=== PATIENT | male | born 1950 | race Caucasian/White ===

== ENCOUNTER 2017-07-02 10:53 | Inpatient (IN) | payer OTHER ==
[~2017-07-02] VITALS: Ht 175.3 cm; Wt 113.0 kg
--- NOTE | ~2017-07-02 | HP ---
Unit #: [id number] #: [id number] Patient: ROSALBA SIFUENTES [id number] [address] [address] [id number] I MR#: [id number] NAME: ROSALBA SIFUENTES. ROOM: 59506 Age: 66 Sex: M Admission Date: 07/02/2017 : 1950 Attending Physician: Payal Benjamin M.D. Primary Care Physician: Jessee Brody M.D. HISTORY AND PHYSICAL CHIEF COMPLAINT Weakness. HISTORY OF PRESENT ILLNESS The patient is a 66 year old with history of diabetes and hypertension and brought to the emergency room after visiting the aftercare earlier today for the fatigue and weakness. The patient stated the patient has been feeling sick Tuesday and is unable to eat and has noticed weakness. The patient also complains of the urinary complaints with unable to control the urinary urgency. The patient denies any blood in the urine. The patient was found to have an acute kidney injury with a creatinine of 2.2 and potassium of 2.7 and the UTI. The patient is being admitted for the above reasons. The patient denies any fever, denies any chills, denies any nausea and vomiting. PAST MEDICAL HISTORY History of hypertension and diabetes. PAST SURGICAL HISTORY A tumor removed. SOCIAL HISTORY No history of smoking cigarettes or drinking alcohol or any illicit drug abuse. FAMILY HISTORY Reviewed and none. ALLERGIES Penicillin. HOME MEDICATIONS The patient is on: 1. Norvasc. 2. Valsartan. 3. Hydrocholorothiazide. 4. Bisoprolol. 5. Clonidine. 6. Fenofibrate. 7. Metoprolol. 8. Metformin. REVIEW OF SYMPTOMS Positive for weakness. Positive for decreased oral intake. Positive for Unit #: [id number] #: [id number] Patient: ROSALBA SIFUENTES the urinary complaints. The patient denies any fever. The patient denies any chills. All other systems have been reviewed and are as described in HPI. PHYSICAL EXAMINATION GENERAL APPEARANCE: The patient was laying on the bed, not in acute distress. VITAL SIGNS: Temperature 98.7. Pulse 72. Respiratory rate 15. Blood pressure 150/85. Sating 98% on room air. HEENT: Head: Atraumatic, normocephalic. ENT: Pupils equal, round, reactive to light and accommodation. Extraocular movements are intact. Dry mucous membrane. NECK: Supple. LUNGS: Decreased air entry at the bases. HEART: Regular rate and rhythm. ABDOMEN: Soft. Positive bowel sounds. EXTREMITIES: No cyanosis. No clubbing. NEUROLOGIC: Alert, awake, oriented. No gross focal motor deficit. DIAGNOSTIC STUDIES LABORATORY: Glucose 107. WBC 21.7, hemoglobin 11.4, hematocrit 32.7, neutrophils 90.3. Sodium 132, potassium 2.7, chloride 98, bicarb 23, glucose 113, BUN 35, creatinine 2.2, calcium 8.3, AST 30, ALT 23, albumin 3.0, magnesium 1.3. UA shows 3+ leukocyte esterase, 2+ protein and 25 to 50 urine RBCs and innumerable WBCs. TSH is 2.05. IMAGING: Chest x-ray is negative. ASSESSMENT 1. UTI. 2. Probable sepsis. Check the lactic acid. 3. Hypokalemia. 4. MATHEW. PLAN To admit the patient to inpatient with telemetry. Continue with sepsis protocol and continue with IV antibiotics with Rocephin. Replace the potassium per protocol and replace the magnesium also with the protocol. We will check renal ultrasound and hold the Metformin and hydrochlorothiazide and nephrotoxic agents and further recommendations will follow. Dictated by Madhu Redmond TD: 07/02/2017 16:42 JOB #: [id number] Unit #: [id number] #: [id number] Patient: ROSALBA SIFUENTES HISTORY AND PHYSICAL Page 1 of 1 X PAYAL BENJAMIN MD HISTORY AND PHYSICAL
--- NOTE | ~2017-07-02 | CR72 ---
[facility] A Service of [facility] RADIOLOGY TEXT RESULTS PATIENT: ROSALBA SIFUENTES LOCATION: [place] [address] : [birth year] UNIT #: [id number] AGE: [address]: PAYAL BENJAMIN MD SEX: M ORDER DR: [id number] [place] [address] [place], [place] [address] [id number] I MR#: [id number] Acc #: [id number] NAME: ROSALBA SIFUENTES : 1950 SEX: M STUDY DATE/TIME: 07/02/2017 11:33 UNIT: [facility] ROOM: 4 STUDY DESCRIPTION: CR Chest Single View Portable Attending Physician: Payal Benjamin M.D. Ordering Physician: Dragan Faith M.D. Primary Care Physician: Jessee Brody M.D. MEDICAL IMAGING REPORT This report is preliminary unless electronic signature is present EXAM Chest x-ray single-view portable HISTORY Weakness, short of air with activity for 4 days history of essential hypertension. COMMENT Single frontal portable view chest timed 1133 on 07/02/2017 reviewed. COMPARISON None. FINDINGS Cardiac silhouette is top normal in size and there is evidence for old granulomatous disease. There is no acute-appearing parenchymal infiltrate or acute congestive failure. There is no pneumothorax. IMPRESSION 1. No active disease. Dictated by... Zeinab López M.D. THIS IS AN ELECTRONICALLY VERIFIED REPORT Zeinab López M.D. at 07/03/2017 3:54 PM SAC/myles TD: 07/03/2017 15:39 JOB #: [id number] MEDICAL IMAGING REPORT [facility] A Service of [facility] RADIOLOGY TEXT RESULTS PATIENT: ROSALBA SIFUENTES LOCATION: [place] [address] : [birth year] UNIT #: [id number] AGE: [address]: PAYAL BENAJMIN MD SEX: M ORDER DR: Page 1 of 1 COPY
--- NOTE | ~2017-07-02 | DS ---
Unit #: [id number] #: [id number] Patient: ROSALBA SIFUENTES [id number] [address] [address] [id number] I MR#: [id number] NAME: ROSALBA SIFUENTES. ROOM: 464 Age: 66 Sex: M Admission Date: 07/02/2017 : 1950 Discharge Date: 07/07/2017 Attending Physician: Chelo Gomez M.D. Primary Care Physician: Jessee Brody M.D. DISCHARGE SUMMARY DISCHARGE DIAGNOSES 1. Pseudomonas bacteremia with urinary tract infection. 2. Acute kidney injury. 3. Hypertension. 4. Hyponatremia. 5. Anemia. 6. Zltrh-az-jmriiyc iron deficiency. 7. Diabetes mellitus type 2. Uncontrolled. 8. Prostatitis possible. 9. Hypokalemia. 10. Hypomagnesemia. 11. Mild protein malnutrition. 12. Obesity. CONSULTANTS Dr. Beard. Dr. Her. PROCEDURES PERFORMED PICC line placement done on 07/07/2017. DIAGNOSTIC DATA LABORATORY: Glucose 124, magnesium 1.7, sodium 135, potassium 4.0, and creatinine 1.4, white blood cell count 16.9, hemoglobin 9.9, platelets 297. Blood cultures on 07/03/2017 showing pseudomonas aeruginosa. Urine cultures are showing pseudomonas aeruginosa. ALLERGIES Penicillin. DISCHARGE MEDICATIONS 1. Metformin 1000 mg p.o. b.i.d. 2. Nicotine 21 mg transdermal daily. 3. Toprol XL 200 mg p.o. daily. 4. Fenofibrate 145 mg p.o. daily. 5. Clonidine 0.3 mg p.o. b.i.d. 6. Calcium carbonate 500 mg p.o. t.i.d. over the counter. 7. Hydralazine 25 mg p.o. b.i.d. 8. Levaquin 750 mg IV daily. Stop date 07/26/2017. 9. Cefepime 2 g IV b.i.d. Stop date 07/26/2017. HOSPITAL COURSE The patient is a 66-year-old admitted because of weakness. Unit #: [id number] #: [id number] Patient: ROSALBA SIFUENTES Pseudomonas bacteremia with urinary tract infection: The patient as seen by urology and infectious disease. The patient was started on broad spectrum antibiotics. Repeat blood cultures are negative. The patient was started on Maxipime and Levaquin. The patient will have PICC line and continue the Maxipime and Levaquin. Stop date 07/26/2017. Acute kidney injury: Likely from prerenal infection. The patient received IV fluids. Currently creatinine is stable. Hypertension: Elevated. The patient was given hydralazine prescription. Diabetes mellitus type 2: Uncontrolled. The patient was given insulin. The patient will be continued with metformin. DISPOSITION The patient is discharged home. FOLLOWUP 1. Follow up with family physician in one week time. 2. Follow up with Dr. Beard in one week time. 3. The patient will have IV antibiotics. Home health to follow. 4. manager trust arranged antibiotics. Discharge time taken is 31 minutes. Dictated by... Madhu Lius/rahel TD: 07/08/2017 13:36 JOB #: [id number] CC: Jessee Brody M.D. DISCHARGE SUMMARY Page 1 of 1 X Chelo Gomez MD X DISCHARGE SUMMARY
--- NOTE | ~2017-07-02 | XA166 ---
[facility] A Service of [facility] RADIOLOGY TEXT RESULTS PATIENT: ROSALBA SIFUENTES LOCATION: [facility] 464-01 : [birth year] UNIT #: [id number] AGE: [address]: Chelo Gomez MD SEX: M ORDER DR: [id number] [place] [id number] [facility]. [place], [place] [address] [id number] I MR#: [id number] Acc #: [id number] NAME: ROSALBA SIFUENTES. : 1950 SEX: M STUDY DATE/TIME: 07/07/2017 12:20 UNIT: [facility] ROOM: [facility] STUDY DESCRIPTION: XA PICC Line Placement WO Port Attending Physician: Chelo Gomez M.D. Ordering Physician: Nicola Her M.D. Primary Care Physician: Jessee Brody M.D. MEDICAL IMAGING REPORT This report is preliminary unless electronic signature is present EXAM Right-sided PICC line placement HISTORY Need for IV access in a patient with renal insufficiency and essential hypertension as well as shortness of breath with activity for four days. PRE-PROCEDURE The procedure was explained to the patient and/or patient artist's representative including risks, benefits, potential complications and potential for alternative forms of treatment. Informed consent was obtained, and prior to initiating the procedure a formal timeout procedure was performed. PROCEDURE Using full standard sterile barrier technique, including caps, gowns, gloves, masks, as well as sterile skin preparation and standard sterile draping, the right arm was prepped and draped in the usual fashion, and real-time sterile ultrasound guidance was used to localize an arm vein and to confirm vessel patency. A hard copy ultrasound image was recorded. After local anesthesia with 1% Xylocaine, the vein was punctured using real-time sterile ultrasound guidance, and an 0.018 guidewire was advanced into the superior vena cava, using fluoroscopic guidance. A 4 Nigerian single-lumen PICC was then measured and deployed with the tip positioned in the superior vena cava. The position of the line was documented with a radiographic image. The line was secured in place with an adhesive dressing and an antibiotic patch was applied. Total fluoro time was 0.1 minutes. AK was 2 mGy. IMPRESSION Successful placement of a 4 Nigerian single-lumen PowerPICC via the right arm under ultrasound and fluoroscopic guidance. The tip of the PICC is in STS. [facility] A Service of [facility] RADIOLOGY TEXT RESULTS PATIENT: ROSALBA SIFUENTES LOCATION: [facility] 464-01 : [birth year] UNIT #: [id number] AGE: [address]: Chelo Gomez MD SEX: M ORDER DR: good position in the superior vena cava. Dictated by... Davida Delgado M.D. THIS IS AN ELECTRONICALLY VERIFIED REPORT Davida Delgado M.D. at 07/08/2017 4:56 PM MAGDA/evans TD: 07/08/2017 11:22 JOB #: [id number] MEDICAL IMAGING REPORT Page 1 of 1 COPY
--- NOTE | ~2017-07-02 | EKG ---
PATIENT: ROSALBA SIFUENTES UNIT #: [id number] Ventricular Rate: 70 BPM Atrial Rate: 70 BPM P-R Interval: 106 ms QRS Duration: 86 ms Q-T Interval: 382 ms QTC Calculation(Bezet): 412 ms P Preemption: -13 degrees Calculated R Preemption: -3 degrees Calculated T Preemption: 10 degrees Diagnosis Line: Sinus rhythm with short MO Diagnosis Line: Cannot rule out Inferior infarct , age Diagnosis Line: undetermined Diagnosis Line: Borderline ECG Diagnosis Line: No previous ECGs available Diagnosis Line: Confirmed by COLLIN VILLAGOMEZ MD ([id number]) on 07/03/2017 Diagnosis Line: 3:05:42 PM INTERPRETING MD: DAHLIA MARTINEZ
--- NOTE | ~2017-07-02 | US77 ---
[facility] A Service of [facility] & [facility] RADIOLOGY TEXT RESULTS PATIENT: ROSALBA SIFUENTES LOCATION: [facility] 464- : [birth year] UNIT #: [id number] AGE: [address]: PAYAL BENJAMIN MD SEX: M ORDER DR: [id number] [facility] [address] [facility]. [place], [place] [address] [id number] I MR#: [id number] Acc #: [id number] NAME: ROSALBA SIFUENTES : 1950 SEX: M STUDY DATE/TIME: 07/02/2017 16:47 UNIT: [facility] ROOM: 4 STUDY DESCRIPTION: US Kidney Bilateral Complete Attending Physician: Payal Benjamin M.D. Ordering Physician: Ed Baljeet Cervantes M.D. Primary Care Physician: Jessee Brody M.D. MEDICAL IMAGING REPORT This report is preliminary unless electronic signature is present EXAM Renal ultrasound INDICATION Acute renal insufficiency. Creatinine 2.2. GFR of 30.1. COMPARISON None available. FINDINGS The right kidney measures 12 cm. The left kidney measures 13 cm. There is increased echogenicity of the renal cortex. There is borderline renal cortical atrophy. No hydronephrosis. The bladder is unremarkable. IMPRESSION 1. Chronic medical renal disease and borderline renal cortical atrophy. Dictated by... Chapo Barnard M.D. THIS IS AN ELECTRONICALLY VERIFIED REPORT Chapo Barnard M.D. at 07/03/2017 7:49 PM RPC/myles TD: 07/03/2017 17:50 JOB #: [id number] MEDICAL IMAGING REPORT Page 1 of 1 COPY
--- NOTE | ~2017-07-02 | CO ---
Unit #: [id number] #: [id number] Patient: ROSALBA SIFUENTES [id number] [address] [place], [place] [address] [id number] I MR#: [id number] NAME: ROSALBA SIFUENTES ROOM: 464 Age: 66 Sex: M Admission Date: 07/02/2017 : 1950 Attending Physician: Lea Benjamin M.D. Primary Care Physician: Jessee Brody M.D. Requesting Physician: Sukhdeep Gao M.D. CONSULTATION REPORT REASON FOR CONSULTATION Sepsis. HISTORY OF PRESENT ILLNESS Mr. Sifuentes is a pleasant 66-year-old gentleman with a history of diabetes and hypertension, who was told to go to the emergency room after he was directed by his aftercare primary care physician's office due to weakness and fatigue. Per the patient, he had been doing well for the last month. He had a checkup in May with his primary care physician's office. All of his labs are normal, including his PSA. He had started going to the gym more and working out at the [employer]. This past week he had gone to [place] on a camping trip with his family. He was there for one day and then started feeling bad the next day, for which he had gone to his primary care physician's office. He complained of generalized weakness as well as some urinary complaints. He is unable to control his urinary urgency. He denies any blood in his urine. He denies any nausea, vomiting, chest pain, shortness of air, cough and dysuria. Urine cultures are currently positive with gram negative rods and blood cultures are also positive with gram negative rods. Chest x-ray shows no active disease. The patient has been started on Levaquin and Rocephin. We have been asked do see the patient for antibiotic management and sepsis. PAST MEDICAL HISTORY 1. History of hypertension. 2. Diabetes. PAST SURGICAL HISTORY Tumor removed. SOCIAL HISTORY Denies smoking, illicit drug use or alcohol use. FAMILY HISTORY Noncontributory. ALLERGIES Penicillin which the patient states that when he was 6 years old he took a penicillin shot and he later passed out. He denies any itching, hives, shortness of breath or chest pain with penicillin. CURRENT MEDICATIONS Reviewed. Current antibiotics are Rocephin and Levaquin. REVIEW OF SYSTEMS Unit #: [id number] #: [id number] Patient: ROSALBA SIFUENTES All neb except for those stated in the history of present illness. Has urinary complaints and weakness. PHYSICAL EXAMINATION GENERAL: Awake, alert and oriented, lying in bed in no acute distress, very talkative. VITALS: Temperature 98.2, heart rate 72, respiratory rate 18, blood pressure 152/73. NECK: Supple. LUNGS: Clear to auscultation, nonlabored. HEART: Regular rate and rhythm. ABDOMEN: Soft, nontender, mildly distended. SKIN: Dry, intact. No edema. NEUROLOGIC: Alert and oriented. DIAGNOSTIC STUDIES IMAGING: Chest x-ray with no active disease. Ultrasound of the kidney with chronic medical/renal disease and borderline renal cortical atrophy. LABORATORY: Chemistry, glucose 127, BUN 24, creatinine 1.5, GFR 27.8, sodium 134, CO2 23, AST 30, ALT 23, lactic acid 1.2. White blood cell count 12.5 and yesterday was 160, hemoglobin 10.0, platelets 161. Urinalysis 3+ leukocyte esterase, 2+ protein, 3+ blood, white blood cells large amount, too numerous to count, yeast present. Microbiology data, urine culture currently growing gram negative rods. Blood cultures 2 of 2 sets with gram negative rods. ASSESSMENT/PLAN 1. Sepsis related to gram negative juan pablo bacteremia. Suspected cause is most likely urinary tract infection. Urine is also growing gram negative rods. The patient states that he had a PSA checked this past May which was normal. At this point will discontinue Rocephin antibiotic coverage and change to cefepime. Will continue Levaquin for now. Will follow up on identification of gram negative juan pablo in blood and adjust antibiotics accordingly. Will discuss with Madhu Further recommendations from Dr. Her. Dictated by... MARGARET Rodriguez TD: 07/04/2017 09:04 JOB #: [id number] Unit #: [id number] #: [id number] Patient: ROSALBA SIFUENTES CONSULTATION REPORT Page 1 of 1 X X CONSULTATION REPORT
--- NOTE | ~2017-07-02 | CO ---
Unit #: [id number] #: [id number] Patient: ROSALBA SIFUENTES [id number] [address] [address] [id number] I MR#: [id number] NAME: ROSALBA SIFUENTES. ROOM: 464 Age: 66 Sex: M Admission Date: 07/02/2017 : 1950 Attending Physician: Chelo Gomez M.D. Primary Care Physician: Jessee Brody M.D. Consultation Date: 07/06/2017 CONSULTATION REPORT CHIEF COMPLAINT 1. Urinary tract infection. 2. Balanitis. 3. Elevated PSA. HISTORY OF PRESENT ILLNESS The patient is a 66-year-old diabetic male who presented on 07/02/2017 with a 2-3 day history of worsening urinary urgency and poor p.o. tolerance as well as feeling weak. Denies fevers, chills, nausea, vomiting. He states that he has had trouble with inability to retract his foreskin and a buried penis for quite some time. He has had blood and urine cultures which are positive for pseudomonas. He had an acute renal failure with a creatinine of 2.2 on admission and is now down to 1.4. PAST MEDICAL HISTORY 1. Obesity. 2. Hypertension. 3. Diabetes. SOCIAL HISTORY Negative for tobacco, alcohol or drug use. FAMILY HISTORY Noncontributory. ALLERGIES Penicillin. CURRENT MEDICATIONS Documented in the chart. REVIEW OF SYSTEMS Positive for urinary frequency. Positive for weakness. Negative for fever. Negative for chills. PHYSICAL EXAMINATION GENERAL: Pleasant, well-developed, mildly obese male in no acute distress. VITALS: Temperature 98.8, blood pressure 141/66, respiratory rate 18. HEENT: Normocephalic, atraumatic. Extraocular movement are intact. NECK: Supple. No lymphadenopathy. CHEST: Symmetric chest rise and unlabored respirations. HEART: Regular rate and rhythm. Normal radial pulses. ABDOMEN: Soft, nontender and nondistended. No rebound or guarding. Unit #: [id number] #: [id number] Patient: ROSALBA SIFUENTES Bladder is not palpable. GENITOURINARY: He has severe balanitis and the foreskin cannot be retracted, but the meatus is visible. DIGITAL RECTAL: Normal sized prostate. It is not tender. It is not boggy. There are no nodules. DIAGNOSTIC STUDIES IMAGING: Renal ultrasound was reviewed and there is no hydronephrosis. LABORATORY: White blood cell count 17,000, creatinine 1.4, urinalysis with pyuria and hematuria. Urine and blood cultures as above. ASSESSMENT/PLAN 1. Urinary tract infection. He needs to be treated with at least two weeks of antibiotics. He can be switched to p.o. Levaquin. We will need to monitor him closely for joint issues with this. 2. Balanitis. We need to add Diflucan for seven days. He will likely need a dorsal slit in the future. 3. Elevated PSA. Per the patient, he had a normal PSA a couple of months ago. There is almost no value to a PSA in the setting of an acute urinary tract infection and this needs to be repeated in a couple of months after his urinary tract infection is treated. 4. We will check a bladder scan to ensure that his postvoid residuals are low. Dictated by... Markus Beard M.D. SHARON/rahel TD: 07/06/2017 07:14 JOB #: [id number] CONSULTATION REPORT Page 1 of 1 X Markus Beard MD X CONSULTATION REPORT
[2017-07-02 12:16] LABS: BASOPHIL% 0.1 % (0-2.5); DIFF IND YES; EOSINOPHIL% 0.2 % (0.0-7.0); HEMATOCRIT 32.7 % (38.0-50.0); HEMOGLOBIN 11.4 gm/dL (13.0-16.0); LYMPHOCYTE# 0.8 X10e3 (1.0-3.5); LYMPHOCYTE% 3.5 % (17.0-45.0); MEAN CELL VOLUME 86.8 FL (83-96); MEAN CORPUSCULAR HEMOGLOBIN 30.2 PG (28-34); MEAN CORPUSCULAR HGB CONC 34.8 g/dL (30-36); MEAN PLATELET VOLUME 9.1 FL (6.5-11.5); MONOCYTE# 1.3 X10e3 (0-1.0); MONOCYTE% 5.9 % (3.0-12.0); NEUTROPHIL# 19.6 X10e3 (1.5-7.1); NEUTROPHIL% 90.3 % (40-75); PLATELET COUNT 154 X10e3 (140-420); RED BLOOD COUNT 3.77 X10e (3.90-5.60); RED CELL DISTRIBUTION WIDTH 13.6 % (11.0-15.5); WHITE BLOOD COUNT 21.7 X10e3 (4.0-10.5)
[2017-07-02 12:39] LABS: URINE SOURCE CLEAN CATCH
[2017-07-02 12:39] LABS: PLATELET ESTIMATE NORMAL (NORMAL); RBC NORMAL YES
[2017-07-02 12:46] LABS: URINE APPEARANCE TURBID; URINE BILIRUBIN NEG (NEG); URINE BLOOD 3+ (NEG); URINE COLOR DK YELLOW; URINE GLUCOSE NEG (NEG); URINE KETONE TRACE (NEG); URINE LEUKOCYTE ESTERASE 3+ (NEG); URINE NITRATE NEG (NEG); URINE PROTEIN 2+ (NEG); URINE SPECIFIC GRAVITY 1.019 (1.003-1.035)
[2017-07-02 12:49] LABS: CULTURE INDICATED? YES; URBCS1 AUWI 25-50 /[HPF] (0-2); URINE BACTERIA AUWI NEG (NEGATIVE); URINE SQUAMOUS EPITHELIAL CELL NONE SEEN /[HPF]; UWBCS1 AUWI INNUM (0-5)
[2017-07-02 12:52] LABS: BILIRUBIN, DIRECT 0.5 mg/dL (0.0-0.2); BILIRUBIN,INDIRECT 0.6 mg/dL (0.0-0.9); BILIRUBIN,TOTAL 1.1 mg/dL (0.2-2.0); BUN/CREATININE RATIO 15.9; CALCIUM SERUM 8.3 mg/dL (8.4-10.2); CREATININE SERUM 2.2 mg/dL (0.6-1.4); GLOM FILT RATE Estimated 30.1 mL/min (>60); MAGNESIUM 1.3 mg/dL (1.6-3.0); PROTEIN TOTAL SERUM 6.9 g/dL (6.0-8.3)
[2017-07-02 12:59] LABS: POTASSIUM 2.7 mmol/L (3.5-5.1)
[2017-07-02 13:03] LABS: URINE SPERM PRESENT; URINE YEAST PRESENT
[2017-07-02] MEDS ORDERED: AMLOD-VALSA-HC1 EAC4 PO (16:30)
[2017-07-02] MEDS ORDERED: BISOPROLOL-HCT1 EAC1 PO (16:30)
[2017-07-02] MEDS ORDERED: FENOFIBRATE145 M1 PO (16:31)
[2017-07-02] MEDS ORDERED: METOPROLOL SUC200 MG PO (16:31)
[2017-07-02] MEDS ORDERED: CLONIDINE HCL0.3 MG PO (16:31)
[2017-07-02] MEDS ORDERED: METFORMIN PO (16:32)
[2017-07-03 05:41] LABS: HEMATOCRIT 32.7 % (38.0-50.0); HEMOGLOBIN 11.3 gm/dL (13.0-16.0); MEAN CELL VOLUME 87.7 FL (83-96); MEAN CORPUSCULAR HEMOGLOBIN 30.3 PG (28-34); MEAN CORPUSCULAR HGB CONC 34.6 g/dL (30-36); MEAN PLATELET VOLUME 9.9 FL (6.5-11.5); RED BLOOD COUNT 3.73 X10e (3.90-5.60); RED CELL DISTRIBUTION WIDTH 13.2 % (11.0-15.5)
[2017-07-03 06:03] LABS: BUN/CREATININE RATIO 19.37; CREATININE SERUM 1.6 mg/dL (0.6-1.4); GLOM FILT RATE Estimated 44.3 mL/min (>60); POTASSIUM 3.3 mmol/L (3.5-5.1)
[2017-07-04 02:44] LABS: HEMATOCRIT 29.9 % (38.0-50.0); MEAN CELL VOLUME 89.1 FL (83-96); MEAN CORPUSCULAR HEMOGLOBIN 29.9 PG (28-34); MEAN CORPUSCULAR HGB CONC 33.6 g/dL (30-36); MEAN PLATELET VOLUME 9.6 FL (6.5-11.5); RED BLOOD COUNT 3.35 X10e (3.90-5.60); RED CELL DISTRIBUTION WIDTH 13.5 % (11.0-15.5); WHITE BLOOD COUNT 12.5 X10e3 (4.0-10.5)
[2017-07-04 03:07] LABS: CALCIUM SERUM 7.9 mg/dL (8.4-10.2); CREATININE SERUM 1.5 mg/dL (0.6-1.4); GLOM FILT RATE Estimated 47.8 mL/min (>60); MAGNESIUM 1.9 mg/dL (1.6-3.0); POTASSIUM 3.5 mmol/L (3.5-5.1)
[2017-07-05 02:47] LABS: HEMATOCRIT 29.4 % (38.0-50.0); HEMOGLOBIN 10.2 gm/dL (13.0-16.0); MEAN CELL VOLUME 88.5 FL (83-96); MEAN CORPUSCULAR HEMOGLOBIN 30.6 PG (28-34); MEAN CORPUSCULAR HGB CONC 34.6 g/dL (30-36); RED BLOOD COUNT 3.32 X10e (3.90-5.60); RED CELL DISTRIBUTION WIDTH 13.3 % (11.0-15.5); WHITE BLOOD COUNT 14.1 X10e3 (4.0-10.5)
[2017-07-05 03:21] LABS: BUN/CREATININE RATIO 13.75; CALCIUM SERUM 7.8 mg/dL (8.4-10.2); CREATININE SERUM 1.6 mg/dL (0.6-1.4); GLOM FILT RATE Estimated 44.3 mL/min (>60); MAGNESIUM 1.7 mg/dL (1.6-3.0); POTASSIUM 3.7 mmol/L (3.5-5.1)
[2017-07-06 03:36] LABS: DIFF IND YES
[2017-07-06 04:35] LABS: PLATELET ESTIMATE NORMAL (NORMAL)
[2017-07-06 04:36] LABS: RBC NORMAL YES
[2017-07-06 04:44] LABS: MEAN CELL VOLUME 88.9 FL (83-96); RED BLOOD COUNT 3.27 X10e (3.90-5.60); WHITE BLOOD COUNT 16.9 X10e3 (4.0-10.5)
[2017-07-06 04:45] LABS: BASOPHIL# 0.1 X10e3 (0-0.3); BASOPHIL% 0.3 % (0-2.5); DIFF IND YES; EOSINOPHIL# 0.1 X10e3 (0-0.7); EOSINOPHIL% 0.5 % (0.0-7.0); LYMPHOCYTE# 1.4 X10e3 (1.0-3.5); LYMPHOCYTE% 8.5 % (17.0-45.0); MEAN CORPUSCULAR HEMOGLOBIN 30.6 PG (28-34); MEAN CORPUSCULAR HGB CONC 34.5 g/dL (30-36); MEAN PLATELET VOLUME 8.5 FL (6.5-11.5); MONOCYTE# 1.7 X10e3 (0-1.0); MONOCYTE% 10.3 % (3.0-12.0); NEUTROPHIL# 13.6 X10e3 (1.5-7.1); NEUTROPHIL% 80.4 % (40-75); PLATELET COUNT 237 X10e3 (140-420); RED CELL DISTRIBUTION WIDTH 13.5 % (11.0-15.5)
[2017-07-06 04:46] LABS: PLATELET ESTIMATE NORMAL (NORMAL); RBC NORMAL YES
[2017-07-06 04:53] LABS: BUN/CREATININE RATIO 14.28; CALCIUM SERUM 7.6 mg/dL (8.4-10.2); CREATININE SERUM 1.4 mg/dL (0.6-1.4); POTASSIUM 3.6 mmol/L (3.5-5.1)
[2017-07-07 05:11] LABS: HEMOGLOBIN 9.9 gm/dL (13.0-16.0); MEAN CORPUSCULAR HEMOGLOBIN 30.5 PG (28-34); MEAN CORPUSCULAR HGB CONC 34.3 g/dL (30-36); MEAN PLATELET VOLUME 8.2 FL (6.5-11.5); RED BLOOD COUNT 3.26 X10e (3.90-5.60); RED CELL DISTRIBUTION WIDTH 13.7 % (11.0-15.5); WHITE BLOOD COUNT 15.9 X10e3 (4.0-10.5)
[2017-07-07 06:49] LABS: ALBUMIN SERUM 2.3 g/dL (3.5-5.0); BILIRUBIN,TOTAL 0.5 mg/dL (0.2-2.0); CALCIUM SERUM 8.3 mg/dL (8.4-10.2); CREATININE SERUM 1.4 mg/dL (0.6-1.4); PROTEIN TOTAL SERUM 6.4 g/dL (6.0-8.3)
[2017-07-07] MEDS ORDERED: LEVAQUIN750 MG PO (18:00)
[2017-07-07] MEDS ORDERED: HYDRALAZINE HCL25 MG PO (18:01)
[2017-07-07] MEDS ORDERED: DIFLUCAN200 MG PO (18:02)
[2017-07-07] MEDS ORDERED: NICOTINE PATCH1 EACH TD (18:04)
[2017-07-07] MEDS ORDERED: TUMS500 MG PO (18:06)
[2017-07-07] MEDS ORDERED: LEVAQUIN750 M1 PO (18:07)
[2017-07-07] MEDS ORDERED: CEFEPIME HCL2 GM IV (18:08)
[2017-08-12] MEDS ORDERED: METOPROLOL SUC100 MG PO (13:27)
== END 2017-07-07 19:23 | disposition home health service (06) | DRG 690 ==
LOC: CED 10:53 → CEDOF 15:00 → CED 15:45 → C5C 16:59 → CEDOF 16:59 → C4C 07-03 13:34 → C5C 07-03 13:34 → C4C 07-04 12:08
PROVIDERS: Emergency Medicine; Internal Medicine
PROC: 02HV33Z Insertion of Infusion Device into Superior Vena Cava, Percutaneous Approach (ICD-10-PCS; principal; 2017-07-07)
PROC: B518YZA Fluoroscopy of Superior Vena Cava using Other Contrast, Guidance (ICD-10-PCS; 2017-07-07)
PROC: B548ZZA Ultrasonography of Superior Vena Cava, Guidance (ICD-10-PCS; 2017-07-07)
DX: N39.0 Urinary tract infection, site not specified (principal); N17.9 Acute kidney failure, unspecified; E87.2 Acidosis; E11.65 Type 2 diabetes mellitus with hyperglycemia; E44.1 Mild protein-calorie malnutrition; E87.1 Hypo-osmolality and hyponatremia; I10 Essential (primary) hypertension; B96.5 Pseudomonas (aeruginosa) (mallei) (pseudomallei) as the cause of diseases classified elsewhere; E87.6 Hypokalemia; Z88.0 Allergy status to penicillin; R97.20 Elevated prostate specific antigen [PSA]; E66.01 Morbid (severe) obesity due to excess calories; D50.9 Iron deficiency anemia, unspecified; E83.51 Hypocalcemia; Z68.36 Body mass index [BMI] 36.0-36.9, adult
CPT/HCPCS: 36415; 71010; 76770; 76937; 77001; 80048; 80053; 80076; 81003; 82947; 83605; 83735; 84132; 84443; 85025; 85027; 87040; 87077; 87086; 87088; 87186; 93005; 94760; 96360; 99285; C1751; G0103; J0692; J0696; J1650; J1815; J1956; J3475

== ENCOUNTER → 2017-08-12 | Outpatient (CLI) | payer OTHER ==
[~2017-08-12] MED LIST: AMLOD-VALSA-HC1 EAC4 PO; BISOPROLOL-HCT1 EAC1 PO; CEFEPIME HCL2 GM IV; CLONIDINE HCL0.3 MG PO; DIFLUCAN200 MG PO; FENOFIBRATE145 M1 PO; HYDRALAZINE HCL25 MG PO; LEVAQUIN750 M1 PO; LEVAQUIN750 MG PO; METFORMIN PO; METOPROLOL SUC100 MG PO; METOPROLOL SUC200 MG PO; NICOTINE PATCH1 EACH TD; TUMS500 MG PO
[2017-08-12 13:33] LABS: HEMATOCRIT 31.4 % (38.0-50.0); HEMOGLOBIN 11.1 gm/dL (13.0-16.0); MEAN CELL VOLUME 88.6 FL (83-96); MEAN CORPUSCULAR HEMOGLOBIN 31.3 PG (28-34); MEAN CORPUSCULAR HGB CONC 35.3 g/dL (30-36); MEAN PLATELET VOLUME 8.6 FL (6.5-11.5); RED BLOOD COUNT 3.55 X10e (3.90-5.60); RED CELL DISTRIBUTION WIDTH 13.6 % (11.0-15.5); WHITE BLOOD COUNT 6.6 X10e3 (4.0-10.5)
[2017-08-12 14:01] LABS: BUN/CREATININE RATIO 16.42; CREATININE SERUM 1.4 mg/dL (0.6-1.4); POTASSIUM 3.9 mmol/L (3.5-5.1)
== END | disposition home or self-care (01) ==
LOC: CAMB 12:53
PROVIDERS: Urology
DX: Z01.812 Encounter for preprocedural laboratory examination (principal); N47.1 Phimosis
CPT/HCPCS: 36415; 80048; 85027